=== PATIENT | female | born 1980 | race Caucasian/White ===

== ENCOUNTER 2019-05-27 18:26 | Emergency (ER) | payer SELFPAY ==
[~2019-05-27] VITALS: Ht 162.6 cm; Wt 83.9 kg
--- NOTE | 2019-05-27 18:52 | PHYS DOC ---
Past History Past Medical History: Anxiety, Bipolar, Depression Additional Past Medical Histor: PTSD, conversion disorder Smoking: Cigarettes Alcohol Use: None Drug Use: None Adult General HPI HPI Patient is a 39-year-old female who presents to the emergency department for evaluation. She states her counselor referred her to the emergency department for hospitalization because she is having too much stress for her to handle, and she is thinking of harming someone else. She states she is thinking of harming "anybody" to let her frustration, but she is specifically thinking of harming her boyfriend though she does not explain to me why. She states that he is aware of her desire to harm him. She denies any suicidal thoughts. She has been hospitalized in the past about a year ago in [place], and was sent by her counselor for hospitalization. She denies any alleviating or exacerbating factors to her symptoms otherwise. I will attempt to have the patient's boyfriend contacted, to ensure that he is aware of the patient's desire to harm him and to ensure that he is safe Review of Systems Review of Systems Constitutional: Denies fever or chills [] Eyes: Denies change in visual acuity, redness, or eye pain [] HENT: Denies nasal congestion or sore throat [] Respiratory: Denies cough or shortness of breath [] Cardiovascular: The patient denies any shortness of breath, chest pain, palpitations, or orthopnea [] GI: Denies abdominal pain, nausea, vomiting, bloody stools or diarrhea [] : Denies dysuria or hematuria [] Musculoskeletal: Denies back pain or joint pain [] Integument: Denies rash or skin lesions [] Neurologic: Denies headache, focal weakness or sensory changes [] Endocrine: Denies polyuria or polydipsia [] All other systems were reviewed and found to be within normal limits, except as documented in this note. Physical Exam Physical Exam PHYSICAL EXAM: CONSTITUTIONAL: Well developed, well nourished HEAD: normocephalic, atraumatic EENT: PERRL, EOMI. Conjunctivae normal color, sclerae non-icteric; moist mucous membranes. NECK: Supple, non-tender; no meningismus. LUNGS: Lungs CTA, breathing even and unlabored. Normal air movement. HEART: Regular rate and rhythm, no murmur CHEST: No deformity; non-tender ABDOMEN: The abdomen is soft, and non-tender, no masses or bruits. EXTREM: Normal ROM; no deformity, no calf tenderness. Normal pulses palpable in all extremities. There is no pedal edema. SKIN: No rash; no diaphoresis NEURO: Alert; normal speech and cognition; CN's grossly intact; strength grossly intact without focal deficit. BACK: No CVA TTP. PSYCHIATRIC: Mildly anxious affect. Current Patient Data Lab Results Laboratory Tests Test 05/27/19 18:46 05/27/19 19:15 05/27/19 19:55 Urine Collection Type Unknown Urine Color Yellow Urine Clarity Clear Urine pH 6.0 Urine Specific [place] 1.025 Urine Protein Neg Urine Glucose (UA) Neg mg/dL Urine Ketones (Stick) Neg mg/dL Urine Blood Neg Urine Nitrite Neg Urine Bilirubin Neg Urine Urobilinogen Dipstick 0.2 mg/dL Urine Leukocyte Esterase Neg Urine RBC Occ /HPF Urine WBC Occ /HPF Urine Squamous Epithelial Cells Few /LPF Urine Bacteria Few /HPF Urine Mucus Mod /LPF Urine Opiates Screen Neg Urine Methadone Screen Neg Urine Barbiturates Neg Urine Phencyclidine Screen Neg Urine Amphetamine/Methamphetamine Neg Urine Benzodiazepines Screen Neg Urine Cocaine Screen Neg Urine Cannabinoids Screen Neg Urine Ethyl Alcohol Neg White Blood Count 10.6 x10^3/uL Red Blood Count 3.53 x10^6/uL Hemoglobin 12.8 g/dL Hematocrit 38.1 % Mean Corpuscular Volume 108 fL Mean Corpuscular Hemoglobin 36 pg Mean Corpuscular Hemoglobin Concent 34 g/dL Red Cell Distribution Width 14.8 % Platelet Count 140 x10^3/uL Neutrophils (%) (Auto) 61 % Lymphocytes (%) (Auto) 31 % Monocytes (%) (Auto) 6 % Eosinophils (%) (Auto) 1 % Basophils (%) (Auto) 0 % Neutrophils # (Auto) 6.5 x10^3uL Lymphocytes # (Auto) 3.3 x10^3/uL Monocytes # (Auto) 0.6 x10^3/uL Eosinophils # (Auto) 0.1 x10^3/uL Basophils # (Auto) 0.0 x10^3/uL Sodium Level 140 mmol/L Potassium Level 3.5 mmol/L Chloride Level 107 mmol/L Carbon Dioxide Level 26 mmol/L Anion Gap 7 Blood Urea Nitrogen 10 mg/dL Creatinine 0.8 mg/dL Estimated GFR (Cockcroft-Gault) 80.3 BUN/Creatinine Ratio 13 Glucose Level 92 mg/dL Calcium Level 8.5 mg/dL Total Bilirubin 0.2 mg/dL Aspartate Amino Transf (AST/SGOT) 12 U/L Alanine Aminotransferase (ALT/SGPT) 11 U/L Alkaline Phosphatase 111 U/L Total Protein 7.0 g/dL Albumin 3.5 g/dL Albumin/Globulin Ratio 1.0 Salicylates Level 6.4 mg/dL Salicylate Last Dose Date Unknown Salicylate Last Dose Time Unknown Acetaminophen Level < 2.0 mcg/mL Acetaminophen Last Dose Date Unknown Acetaminophen Last Dose Time Unknown Ethyl Alcohol Level < 10 mg/dL Serum Test, Qualitative Negative EKG EKG Normal sinus rhythm with a normal rate, normal axis, normal intervals, there are no acute ischemic ST/T changes.[] Radiology/Procedures Radiology/Procedures [] Course & Med Decision Making Course & Med Decision Making Pertinent Labs studies reviewed. (See chart for details) []10:15 PM: Patient was seen by tele-psychiatry, and we both agree that the patient is appropriate for hospitalization. Efforts to find the patient in mental health will be undertaken at this time. 05/28/19 6:00 AM: Patient condition remains stable. Care will be turned over to Dr. Sal at shift change, pending disposition and final placement. Report given. Dragon Disclaimer Dragon Disclaimer This electronic medical record was generated, in whole or in part, using a voice recognition dictation system. Departure Departure: Impression: Primary Impression: Depression Additional Impression: Homicidal ideation Disposition: HOME/RESIDENCE PRIOR TO ADM Condition: STABLE Referrals: MARYSOL SNOWDEN MD (PCP) Problem Qualifiers MARCY HOOPER MD May 27, 2019 18:51
--- NOTE | 2019-05-27 19:20 | EKG ---
[address] [address] Test Date: 2019-05-27 Test Time: 18:58:56 Pat Name: ANNE WILLIAMSON Department: Room: Gender: F Senior Sales Consultant: Steffany : 1980 Requested By: MARCY HOOPER Order Number: [id number] Reading MD: Measurements Intervals [place] Rate: 65 P: 57 FL: 118 QRS: 36 QRSD: 82 T: 42 QT: 426 QTc: 448 Interpretive Statements SINUS RHYTHM NO SPECIFIC ECG ABNORMALITIES RI6.01 No previous ECG available for comparison
[2019-05-27 19:40] LABS: BASO % 0 % (0-3); EOS # 0.1 x10^3/uL (0.0-0.7); EOS % 1 % (0-3); HEMATOCRIT 38.1 % (36.0-47.0); HEMOGLOBIN 12.8 g/dL (12.0-15.5); LYMPH # 3.3 x10^3/uL (1.0-4.8); LYMPH % 31 % (24-48); MEAN CORPUSCULAR HEMOGLOBIN 36 pg (25-35); MEAN CORPUSCULAR HGB CONC 34 g/dL (31-37); MEAN CORPUSCULAR VOLUME 108 fL (79-100); MONO # 0.6 x10^3/uL (0.0-1.1); MONO % 6 % (0-9); NEUT # 6.5 x10^3uL (1.8-7.7); NEUT % 61 % (31-73); PLATELET COUNT 140 x10^3/uL (140-400); RED BLOOD COUNT 3.53 x10^6/uL (3.50-5.40); RED CELL DISTRIBUTION WIDTH 14.8 % (11.5-14.5); WHITE BLOOD COUNT 10.6 x10^3/uL (4.0-11.0)
[2019-05-27 19:45] LABS: BARBITURATES NEG (NEG); BENZODIAZEPINES NEG (NEG); CANNABINOIDS NEG (NEG); COCAINE NEG (NEG); METHADONE NEG (NEG); OPIATES NEG (NEG); PHENCYCLIDINE NEG (NEG)
[2019-05-27 19:47] LABS: AMPHETAMINE/METHAMPHETAMINE NEG (NEG)
[2019-05-27 19:51] LABS: SALIC 6.4 mg/dL (2.8-20.0)
[2019-05-27 19:52] LABS: ACETAMIN < 2.0 mcg/mL (10-30); ALBUMIN 3.5 g/dL (3.4-5.0); CALCIUM 8.5 mg/dL (8.5-10.1); CREATININE 0.8 mg/dL (0.6-1.0); ETHANOL < 10 mg/dL (0-10); GFR 80.3; POTASSIUM 3.5 mmol/L (3.5-5.1); TOTAL BILIRUBIN 0.2 mg/dL (0.2-1.0)
[2019-05-27 19:57] LABS: BILIRUBIN,URINE NEG (NEG); CLARITY,URINE CLEAR; COLOR,URINE YELLOW; GLUCOSE,URINE NEG (NEG); NITRITE,URINE NEG (NEG); RBC,URINE OCC /HPF (0-2); UROBILINOGEN,URINE 0.2 mg/dL (0.2 mg/dL)
[2019-05-27 19:58] LABS: BACTERIA,URINE FEW /HPF (0-FEW); SQUAMOUS EPITHELIAL CELL,UR FEW /LPF; WBC,URINE OCC /HPF (0-4)
[2019-05-27 20:25] LABS: PREG TEST PT QUAL NEGATIVE (NEG)
[2019-05-28 00:11] VITALS: BP 112/71
== END 2019-05-28 09:15 ==
LOC: ER 18:26
DX: F32.9 Major depressive disorder, single episode, unspecified (principal); R45.850 Homicidal ideations; F41.9 Anxiety disorder, unspecified; F43.10 Post-traumatic stress disorder, unspecified; F17.210 Nicotine dependence, cigarettes, uncomplicated
CPT/HCPCS: 36415; 80053; 80307; 80329; 81001; 84703; 85025; 93005; 99285; G0480; 82003